=== PATIENT | female | born 1955 | race Two or more races ===

== ENCOUNTER 2018-06-03 10:22 | Emergency (ER) | payer MEDICAID ==
[~2018-06-03] VITALS: Ht 165.1 cm; Wt 69.0 kg
[2018-06-03] MEDS ORDERED: METF-815 PO (10:31)
[2018-06-03] MEDS ORDERED: QUET50TA PO (10:31)
[2018-06-03] MEDS ORDERED: ASPI-1159 PO (10:31)
[2018-06-03] MEDS ORDERED: FLUO20CA33 PO (10:31)
[2018-06-03] MEDS ORDERED: TRAZ-213 PO (10:31)
[2018-06-03] MEDS ORDERED: TETANUS, DIPHTHERIA, PERTUSSIS VAC/PF 0.5ML (>7YR OLD) IM ONE (12:00)
[2018-06-03 13:18] LABS: CHLORIDE 103 mEq/L (98-107); PROTHROMBIN TIME 10.2 sec (9.1-11.1)
[2018-06-03 13:20] LABS: BASOPHILS % 0.4 % (0.0-2.0); EOSINOPHILS % 0.5 % (0.0-5.0); HEMATOCRIT. 41.6 % (36.0-48.0); HEMOGLOBIN. 13.6 g/dL (12.0-16.0); LYMPHOCYTES % 9.6 % (20.0-50.0); MEAN CORPUSCULAR HEMOGLOBIN 30.3 pg (28.0-32.0); MEAN CORPUSCULAR VOLUME 92.4 fL (81.0-99.0); MEAN PLATELET VOLUME 8.4 fl (7.4-10.4); MONOCYTES % 5.8 % (2.0-8.0); NEUTROPHILS % 83.7 % (40.0-76.0); PLATELET 292 x1000/uL (130-400); RED CELL DISTRIBUTION WIDTH 13.4 % (11.6-14.6)
[2018-06-03 15:03] VITALS: BP 129/89
[2018-06-04] MEDS ORDERED: ZOLP5TAB2 MT (16:32)
[2018-06-04] MEDS ORDERED: OXYB5TAB11 MT (16:32)
[2018-06-04] MEDS ORDERED: PIOG15TA23 MT (16:32)
[2018-06-04] MEDS ORDERED: DONE5TAB33 MT (16:32)
[2018-06-04] MEDS ORDERED: BENA10TA10 MT (16:32)
[2018-06-04] MEDS ORDERED: ATOR10TA69 MT (16:32)
[2018-06-04] MEDS ORDERED: LORA1TAB MT (16:32)
== END 2018-06-03 15:07 | disposition home or self-care (01) ==
LOC: ER 10:25
DX: S09.8XXA Other specified injuries of head, initial encounter (principal); S01.01XA Laceration without foreign body of scalp, initial encounter; F03.90 Unspecified dementia, unspecified severity, without behavioral disturbance, psychotic disturbance, mood disturbance, and anxiety; F32.9 Major depressive disorder, single episode, unspecified; E11.9 Type 2 diabetes mellitus without complications; I51.9 Heart disease, unspecified; W01.0XXA Fall on same level from slipping, tripping and stumbling without subsequent striking against object, initial encounter; Y93.89 Activity, other specified; Y92.89 Other specified places as the place of occurrence of the external cause; Z79.82 Long term (current) use of aspirin
CPT/HCPCS: 12002; 36415; 90471; 90715; 99284

== ENCOUNTER 2018-06-03 15:16 | Inpatient (IN) | payer MEDICAID ==
[~2018-06-03] VITALS: Ht 165.1 cm; Wt 52.2 kg
[~2018-06-03 15:16] MED LIST: ASPI-1159 PO; FLUO20CA33 PO; METF-815 PO; QUET50TA PO; TRAZ-213 PO
[2018-06-03] MEDS ORDERED: SODIUM CHLORIDE 0.9% 1,000 ML IV ONE ×2 (15:37→17:44)
[2018-06-03 17:18] LABS: CLARITY URINE CLOUDY (CLEAR); COLOR URINE DARK YELLOW (YELLOW); KETONES URINE 2+ (NEGATIVE); LEUKOCYTE ESTERASE URINE 1+ (NEGATIVE); NITRITE URINE NEGATIVE (NEGATIVE); OCCULT BLOOD URINE NEGATIVE (NEGATIVE); PH URINE 5.5 (4.5-8.0); PROTEIN URINE 2+ (NEGATIVE); SPECIFIC GRAVITY URINE 1.029 (1.005-1.030)
[2018-06-03] MEDS ORDERED: ONDANSETRON HCL 4MG/2ML INJ IV PRN (18:15)
[2018-06-03] MEDS ORDERED: MAGNESIUM/ALUMINUM HYDROXIDE/SIMETHICONE 30ML UDC PO PRN (18:15)
[2018-06-03] MEDS ORDERED: ACETAMINOPHEN 325MG TABLET PO PRN (18:15)
[2018-06-03] MEDS ORDERED: IPRATROPIUM/ALBUTEROL 0.5-3(2.5)MG/3ML NEB INH PRN (18:15)
[2018-06-03] MEDS ORDERED: DOCUSATE SODIUM 100MG CAPSULE PO PRN (18:15)
[2018-06-03] MEDS ORDERED: CLONIDINE 0.1MG TABLET PO PRN (18:15)
[2018-06-03] MEDS ORDERED: HYDROCODONE/ACETAMINOPHEN 5/325MG TABLET PO PRN (18:15)
[2018-06-03] MEDS ORDERED: CEFTRIAXONE 1 G PREMIX 50 ML IV ONE (20:00)
[2018-06-03 22:45] VITALS: BP 110/72
[2018-06-03] MEDS: SODIUM CHLORIDE 0.9% 1,000 ML IV SCH (23:18)
[2018-06-04] VITALS: BP_SYST 114; BP_SYST 123; BP_SYST 93; BP_DIAS 55; BP_DIAS 56; BP_DIAS 57
[2018-06-04 00:26] LABS: BASOPHILS % 1.1 % (0.0-2.0); EOSINOPHILS % 1.6 % (0.0-5.0); HEMOGLOBIN. 12.9 g/dL (12.0-16.0); LYMPHOCYTES % 25.1 % (20.0-50.0); MEAN CORPUSCULAR VOLUME 91.5 fL (81.0-99.0); MEAN PLATELET VOLUME 8.5 fl (7.4-10.4); MONOCYTES % 6.3 % (2.0-8.0); NEUTROPHILS % 65.9 % (40.0-76.0); PLATELET 295 x1000/uL (130-400); RED BLOOD CELL COUNT 4.16 mill/uL (4.2-5.4); RED CELL DISTRIBUTION WIDTH 13.7 % (11.6-14.6)
[2018-06-04 00:40] LABS: CHLORIDE 108 mEq/L (98-107)
[2018-06-04 00:48] LABS: CREATINE KINASE 49 IU/L (26-192)
[2018-06-04 00:51] LABS: CREATINE KINASE MB FRACTION < 1.0 ng/mL (0.5-3.6)
[2018-06-04 04:00] VITALS: BP 118/48
[2018-06-04] MEDS ORDERED: DEXTROSE 50% WATER 50ML SYRINGE IV PRN (06:15)
[2018-06-04] MEDS: INSULIN LISPRO 100 UNITS/ML SUBCUT SCH ×4 (06:27→20:47)
[2018-06-04] MEDS: BLOOD SUGAR DIAGNOSTIC STRIP TEST SCH ×4 (06:27→20:47)
[2018-06-04 07:33] LABS: CHLORIDE 108 mEq/L (98-107)
[2018-06-04 07:36] LABS: BASOPHILS % 1.1 % (0.0-2.0); EOSINOPHILS % 2.5 % (0.0-5.0); HEMATOCRIT. 35.6 % (36.0-48.0); LYMPHOCYTES % 21.6 % (20.0-50.0); MEAN CORPUSCULAR HEMOGLOBIN 30.9 pg (28.0-32.0); MEAN CORPUSCULAR VOLUME 91.6 fL (81.0-99.0); MEAN PLATELET VOLUME 8.6 fl (7.4-10.4); MONOCYTES % 6.8 % (2.0-8.0); PLATELET 260 x1000/uL (130-400); RED BLOOD CELL COUNT 3.88 mill/uL (4.2-5.4); RED CELL DISTRIBUTION WIDTH 13.3 % (11.6-14.6)
[2018-06-04 07:53] LABS: CREATINE KINASE 46 IU/L (26-192); LDL CHOLESTEROL 62 mg/dL (5-100)
[2018-06-04 07:54] LABS: HDL CHOLESTEROL 80 mg/dL (40-59)
[2018-06-04 07:57] LABS: CREATINE KINASE MB FRACTION < 1.0 ng/mL (0.5-3.6)
[2018-06-04 08:00] VITALS: BP_SYST 106; BP_SYST 96; BP_SYST 97; BP_DIAS 50; BP_DIAS 53; BP_DIAS 62
[2018-06-04] MEDS: ENOXAPARIN 40MG/0.4ML SYR SUBCUT SCH (08:21)
[2018-06-04] MEDS: SODIUM CHLORIDE 0.9% 1,000 ML IV SCH (09:52)
[2018-06-04 10:43] LABS: *BARBITURATES SCREEN URINE NEGATIVE (NEGATIVE); *BENZODIAZEPINES SCREEN URINE NEGATIVE (NEGATIVE); *COCAINE SCREEN URINE NEGATIVE (NEGATIVE)
[2018-06-04 10:44] LABS: CANNABINOID URINE SCREEN NEGATIVE (NEGATIVE); OPIATES URINE SCREEN NEGATIVE (NEGATIVE); PHENCYCLIDINE URINE SCREEN NEGATIVE (NEGATIVE)
[2018-06-04 10:52] LABS: *AMPHETAMINES SCREEN URINE NEGATIVE (NEGATIVE)
[2018-06-04 10:56] LABS: METHADONE URINE SCREEN NEGATIVE (NEGATIVE)
[2018-06-04 11:50] VITALS: BP 115/46
[2018-06-04] MEDS: CEFTRIAXONE 1 G PREMIX 50 ML IV SCH (15:00)
[2018-06-04 15:52] VITALS: BP 140/68
[2018-06-04] MEDS ORDERED: OXYB5TAB11 MT (16:32)
[2018-06-04] MEDS ORDERED: PIOG15TA23 MT (16:32)
[2018-06-04] MEDS ORDERED: DONE5TAB33 MT (16:32)
[2018-06-04] MEDS ORDERED: ZOLP5TAB2 MT (16:32)
[2018-06-04] MEDS ORDERED: BENA10TA10 MT (16:32)
[2018-06-04] MEDS ORDERED: ATOR10TA69 MT (16:32)
[2018-06-04] MEDS ORDERED: LORA1TAB MT (16:32)
[2018-06-04] MEDS ORDERED: ZOLPIDEM TARTRATE 5MG TABLET PO ONE (18:00)
[2018-06-04 20:00] VITALS: BP 117/62
[2018-06-04] MEDS: OXYBUTYNIN CHLORIDE 5MG TABLET PO SCH (20:42)
[2018-06-04] MEDS ORDERED: ATORVASTATIN CALCIUM 10MG TABLET PO SCH (21:00)
[2018-06-04] MEDS ORDERED: ZOLPIDEM TARTRATE 5MG TABLET PO SCH (21:00)
[2018-06-04] MEDS ORDERED: TRAZODONE HCL 100MG TABLET PO SCH (21:00)
[2018-06-05] VITALS: BP 110/79
[2018-06-05] MEDS: SODIUM CHLORIDE 0.9% 1,000 ML IV SCH ×2 (00:05→09:01)
[2018-06-05 04:00] VITALS: BP 145/76
[2018-06-05] MEDS: BLOOD SUGAR DIAGNOSTIC STRIP TEST SCH ×3 (06:28→16:50)
[2018-06-05] MEDS: INSULIN LISPRO 100 UNITS/ML SUBCUT SCH ×3 (06:32→16:50)
[2018-06-05 07:00] LABS: BASOPHILS % 1.4 % (0.0-2.0); EOSINOPHILS % 2.6 % (0.0-5.0); HEMATOCRIT. 37.6 % (36.0-48.0); HEMOGLOBIN. 12.7 g/dL (12.0-16.0); LYMPHOCYTES % 23.4 % (20.0-50.0); MEAN CORPUSCULAR HEMOGLOBIN 30.9 pg (28.0-32.0); MEAN CORPUSCULAR VOLUME 91.1 fL (81.0-99.0); MEAN PLATELET VOLUME 8.3 fl (7.4-10.4); MONOCYTES % 5.6 % (2.0-8.0); PLATELET 280 x1000/uL (130-400); RED BLOOD CELL COUNT 4.12 mill/uL (4.2-5.4); RED CELL DISTRIBUTION WIDTH 13.1 % (11.6-14.6)
[2018-06-05 07:29] LABS: CHLORIDE 106 mEq/L (98-107)
[2018-06-05 08:00] VITALS: BP_SYST 120; BP_SYST 122; BP_SYST 132; BP_DIAS 55; BP_DIAS 73; BP_DIAS 84
[2018-06-05] MEDS ORDERED: QUETIAPINE FUMARATE 50MG TABLET PO SCH (09:00)
[2018-06-05] MEDS ORDERED: DONEPEZIL HCL 5MG TABLET PO SCH (09:00)
[2018-06-05] MEDS ORDERED: BENAZEPRIL 10MG TABLET PO SCH (09:00)
[2018-06-05] MEDS: OXYBUTYNIN CHLORIDE 5MG TABLET PO SCH (09:00)
[2018-06-05] MEDS ORDERED: ASPIRIN 81MG TABLET PO SCH (09:00)
[2018-06-05] MEDS: ENOXAPARIN 40MG/0.4ML SYR SUBCUT SCH (09:00)
[2018-06-05] MEDS ORDERED: PIOGLITAZONE 15MG TABLET PO SCH (09:00)
[2018-06-05] MEDS ORDERED: FLUOXETINE HCL 20MG CAPSULE PO SCH (09:00)
[2018-06-05] MEDS: CEFTRIAXONE 1 G PREMIX 50 ML IV SCH (14:00)
[2018-06-05] MEDS ORDERED: SULF1TAB48 MT (16:30)
[2018-06-05 16:42] VITALS: BP 134/58
[2018-06-05 20:00] VITALS: BP 135/55
== END 2018-06-05 19:50 | disposition home health service (06) | DRG 463 ==
LOC: ER 15:16 → 8WST 17:50 → ENRESERV 20:57 → 8WST 22:51
PROVIDERS: ADMIT Internal Medicine; ATTEND Internal Medicine
DX: N39.0 Urinary tract infection, site not specified (principal); E87.8 Other disorders of electrolyte and fluid balance, not elsewhere classified; I95.9 Hypotension, unspecified; I27.20 Pulmonary hypertension, unspecified; G90.8 Other disorders of autonomic nervous system; F03.90 Unspecified dementia, unspecified severity, without behavioral disturbance, psychotic disturbance, mood disturbance, and anxiety; E11.9 Type 2 diabetes mellitus without complications; E86.0 Dehydration; F32.9 Major depressive disorder, single episode, unspecified; F41.9 Anxiety disorder, unspecified; W01.0XXA Fall on same level from slipping, tripping and stumbling without subsequent striking against object, initial encounter; S01.01XA Laceration without foreign body of scalp, initial encounter; Y93.89 Activity, other specified; Y92.89 Other specified places as the place of occurrence of the external cause; Z86.73 Personal history of transient ischemic attack (TIA), and cerebral infarction without residual deficits; Y99.8 Other external cause status; R63.6 Underweight
CPT/HCPCS: 36415; 70551; 71045; 80048; 80061; 80305; 82533; 82550; 82553; 82962; 83036; 83735; 84443; 84484; 93005; 93306; 93880; 93970; 97162; 99285; J0696; J1650; J1815; J7030

== ENCOUNTER 2018-06-16 17:21 | Emergency (ER) | payer MEDICAID ==
[~2018-06-16] VITALS: Ht 162.6 cm; Wt 82.0 kg
[~2018-06-16 17:21] MED LIST changes: +ATOR10TA69 MT; +BENA10TA10 MT; +DONE5TAB33 MT; +LORA1TAB MT; +OXYB5TAB11 MT; +PIOG15TA23 MT; +SULF1TAB48 MT; +ZOLP5TAB2 MT
[2018-06-16 18:29] VITALS: BP 111/53
== END 2018-06-16 19:44 | disposition home or self-care (01) ==
LOC: ER 17:21
DX: S01.01XD Laceration without foreign body of scalp, subsequent encounter (principal); F41.9 Anxiety disorder, unspecified; F31.9 Bipolar disorder, unspecified; E11.9 Type 2 diabetes mellitus without complications; F03.90 Unspecified dementia, unspecified severity, without behavioral disturbance, psychotic disturbance, mood disturbance, and anxiety; Z79.82 Long term (current) use of aspirin; Z86.73 Personal history of transient ischemic attack (TIA), and cerebral infarction without residual deficits; Z79.899 Other long term (current) drug therapy; X58.XXXD Exposure to other specified factors, subsequent encounter
CPT/HCPCS: 99281; Z7610